=== PATIENT | male | born 1980 | race Caucasian/White ===

== ENCOUNTER 2016-12-05 14:40 | Inpatient (IN) | payer MEDICARE ==
[~2016-12-05] VITALS: Ht 180.3 cm; Wt 113.4 kg
--- NOTE | ~2016-12-05 | PR ---
[place], [place] PROGRESS NOTE NAME: GLORIA GUERRIER [facility] #: [id number] UNIT #: [id number] ROOM: 426 DOCTOR: LISA FRZAIER MD BIRTHDATE: [birth year] DOS: 12/06/2016 SUBJECTIVE: This patient is 36 years old. The patient comes in with complaints of high blood sugar. In March 2016, as a part of the DOT test, he was found to be diabetic. Then, he lost his insurance and he was unable to pay for a doctor visit, so he had not seen anybody until he visited Dr. Alicia's office yesterday, had a blood sugar checked, was unreadable on the monitor and so he decided to come into the Emergency Room. Blood sugar was in the 500s initially and was admitted with poorly controlled new onset diabetes. The patient denies having any chest pains, any palpitations. Does not have any fever or chills. He does have polyuria and polydipsia. PAST MEDICAL HISTORY: Not significant. MEDICATIONS: He does not take any medications. SOCIAL HISTORY: He works as a commercial trailer truck driver. He is , lives with his . OBJECTIVE EXAMINATION: GENERAL: He is awake and alert and oriented. VITAL SIGNS: Graphic trend shows that he is afebrile. Blood pressure is 140/70, pulse of 76, respirations 14. Afebrile. LUNGS: Clear. HEART: Regular. ABDOMEN: Obese, soft, nontender. EXTREMITIES: Without any edema. Multiple tattoos all over his arms. LABORATORY DATA: Hemoglobin A1c was 10.9. WBC count is normal at 9.1. Hemoglobin, hematocrit, platelets were normal. Comprehensive: Glucose 434 initially, BUN and creatinine were normal. Electrolytes were normal. This morning's potassium is down to 3.4. Cholesterol was 239, HDL 23, triglycerides 1153. ASSESSMENT AND PLAN: 1. New onset diabetes mellitus, poorly controlled with hyperglycemia, type 2 diabetes mellitus. The patient is admitted. IV fluids were given for the hyperosmolar state. The patient's blood sugars have come down. Metformin will be added. 2. Hypokalemia. Supplementation was given. 3. Hypertriglyceridemia from diabetes. Tricor was added. The patient is stable and can be discharged and follow up with his PCP. [place], [place] PROGRESS NOTE NAME: GLORIA GUERRIER UNIT #: [id number] ROOM: 426 DOCTOR: LISA FRAZIER MD BIRTHDATE: [birth year] LISA FRAZIER MD CM:PNTRANS [id number] LISA FRAZIER MD 12/06/16 1148 interface
[2016-12-05 14:40] VITALS: BP 184/100
[~2016-12-05 14:40] MED LIST: ALBUTEROL0.09 MG/A2 IH; AMOXICILLIN500 M2 PO; AMOXICILLIN500 MG PO; ANAPROX DS550 MG PO; ASPIRIN81 M1; ATIVAN1 MG PO; AUGMENTIN 875 M1 TAB PO; AUGMENTIN 875875 MG PO; AVPAK AZITHROM250 M1 PO; CATAPRES0.1 MG PO; CIPRO HC OT; CIPRODEX 0.3%-7.5 ML OT; CORTISPORIN 1%-10 M1 OT; CYCLOBENZAPRINE10 MG PO; DEPAKOTE125 MG; DEPAKOTE250 MG PO; DONNATAL1 TAB PO; DOXYCYCLINE HY100 M3 PO; DOXYCYCLINE MO100 MG PO; Depakote ER500 MG PO; EES400 MG PO; HYDROCODONE BIT1 T11 PO; IBU800 M1 PO; KEFLEX500 M1 PO; KEFLEX500 MG PO; LASIX20 MG PO; LIDEX0.05% T; MICRO K10 MEQ PO; MOTRIN,RUFEN800 MG PO; MOTRIN800 MG PO; Motrin,Rufen800 MG PO; NAPROSYN500 MG PO; NKHM; NORCO 5-325 TA1 EACH PO; OYSTER SHELL CA1 TAB PO; PEN-VK500 MG PO; PRAVACHOL20 MG PO; PREDNICOT20 MG PO; PREDNISONE10 MG PO; QVAR0.08 MG/AC IH; ROBITUSSIN-AC 160 ML PO; SINGULAIR10 MG PO; TESSALON PERLE100 M1 PO; TESSALON PERLE200 MG PO; TOBREX OPHTH S2.5 ML OPH; TRAMADOL HCL50 MG PO; TRIMOX500 MG PO; ULTRAM50 MG PO; VIBRAMYCIN100 MG PO; VICODIN 5/500 505 MG PO; VICODIN 500 MG-1 TAB PO; VICODIN ES 7501 TAB PO; VITAMIN D50000 I3 PO; VOLTAREN75 MG PO; WELLBUTRIN SR150 MG; WELLBUTRIN XL300 MG; ZITHROMAX250 MG PO; ZOVIRAX800 MG PO
[2016-12-05 14:55] VITALS: BP 140/97
[2016-12-05 15:50] LABS: BASO # 0.1 10*3/uL (0.0-0.1); BASO % 0.6 % (0.0-1.0); EOS # 0.1 10*3/uL (0.0-0.4); EOS % 1.4 % (1.0-4.0); HEMOGLOBIN 15.9 g/dl (14.0-18.0); LYMPH # 3.5 10*3/uL (1.3-4.4); LYMPH % 38.3 % (27.0-41.0); MEAN CELL VOLUME 85.5 fl (80.0-94.0); MEAN CORPUSCULAR HGB 31.6 pg (27.0-31.0); MEAN PLATELET VOLUME 9.2 fl (9.6-12.3); MONO # 0.6 10*3/uL (0.1-1.0); MONO % 6.1 % (3.0-9.0); NEUT # 4.8 10*3/uL (2.3-7.9); NEUT % 53.3 % (47.0-73.0); PLATELET COUNT AUTOMATED 270 10*3/uL (130-400); RED BLOOD COUNT 5.03 10*6/uL (4.50-5.90); RED CELL DISTRI WIDTH 12.1 % (0-14.5); WHITE BLOOD COUNT 9.1 10*3/uL (4.8-10.8)
[2016-12-05 15:59] LABS: HEMOGLOBIN A1c 10.9 % (4.8-5.6)
[2016-12-05 16:33] LABS: ABG BASE EXCESS -0.9 mmol/L (-2.0-2.0); ABG CO2 CONTENT 24.1 mmol/L (23-27); ABG TEMPERATURE 97.6 F (98.0-99.0); ARTERIAL BLOOD GAS PH 7.413 (7.35-7.45)
[2016-12-05 16:46] LABS: ALBUMIN 3.7 gm/dl (3.1-4.5); ALKALINE PHOSPHATASE 116 U/L (45-117); BILIRUBIN, TOTAL 0.3 mg/dl (0.2-1.0); BUN 12 mg/dl (7-24); CARBON DIOXIDE 22 mmol/L (21-32); CHLORIDE 100 mmol/L (98-107); CHOLESTEROL 239 mg/dL (<200); CKMB 0.8 ng/ml (0.5-3.6); CPK 118 U/L (39-308); EST GLOM FILT AFRICAN AMERICAN > 60 ml/min; HDL CHOLESTEROL 23 mg/dl (40-60); LDH 180 U/L (87-241); MAGNESIUM 2.1 mg/dL (1.5-2.1); POTASSIUM 3.5 mmol/L (3.5-5.1); SGOT/AST 17 IU/L (3-35); SGPT/ALT 43 U/L (12-78); SODIUM 137 mmol/L (136-145); TOTAL PROTEIN 7.4 gm/dL (6.4-8.2)
[2016-12-05 16:54] LABS: TRIGLYCERIDES 1153 mg/dl (<150); TROPONIN I < 0.015 ng/ml (<0.045)
[2016-12-05 16:55] LABS: GLUCOSE 434 mg/dL (65-99)
[2016-12-05 17:02] VITALS: BP 149/94
[2016-12-05 17:12] LABS: BILIRUBIN NEGATIVE (NEGATIVE); BLOOD TRACE-INTACT (NEGATIVE); CLARITY CLEAR (CLEAR); COLOR YELLOW (YELLOW); GLUCOSE 3+ (NEGATIVE); KETONE NEGATIVE (NEGATIVE); LEUKO ESTERASE NEGATIVE (NEGATIVE); NITRITE NEGATIVE (NEGATIVE); PROTEIN NEGATIVE (NEGATIVE); SPECIFIC GRAVITY 1.015 (1.005-1.030); UROBILINOGEN 0.2 E.U./dl (0.2-1.0)
[2016-12-05 17:32] LABS: RBC 0-2 rbc/hpf (0-2); URINE REFLEX COMMENT NO (NO)
[2016-12-05 20:00] VITALS: BP 156/93
[2016-12-06] VITALS: BP 114/58
[2016-12-06 06:30] LABS: BUN 14 mg/dl (7-24); CARBON DIOXIDE 24 mmol/L (21-32); CHLORIDE 105 mmol/L (98-107); EST GLOM FILT AFRICAN AMERICAN > 60 ml/min; GLUCOSE 252 mg/dL (65-99); POTASSIUM 3.4 mmol/L (3.5-5.1); SODIUM 139 mmol/L (136-145)
[2016-12-06] MEDS ORDERED: METFOMIN HYDRO850 MG PO (08:24)
[2016-12-06] MEDS ORDERED: FENOFIBRATE160 MG PO (08:24)
== END 2016-12-06 08:59 | disposition home or self-care (01) | DRG 639 ==
LOC: ED 14:40 → EDHOLD 17:44 → 4E 17:44
PROVIDERS: Internal Medicine; Physician Assistant
DX: E11.00 Type 2 diabetes mellitus with hyperosmolarity without nonketotic hyperglycemic-hyperosmolar coma (NKHHC) (principal); E11.65 Type 2 diabetes mellitus with hyperglycemia; E87.6 Hypokalemia; E78.1 Pure hyperglyceridemia

== ENCOUNTER 2017-02-16 22:20 | Emergency (ER) | payer SELFPAY ==
[~2017-02-16] VITALS: Ht 182.8 cm; Wt 111.6 kg
[~2017-02-16 22:20] MED LIST changes: +FENOFIBRATE160 MG PO; +METFOMIN HYDRO850 MG PO
[2017-02-16] MEDS ORDERED: MEDROL DOSEPAK4 MG PO (22:51)
== END 2017-02-16 23:39 | disposition home or self-care (01) ==
LOC: ED 22:20
DX: L23.9 Allergic contact dermatitis, unspecified cause (principal); F17.200 Nicotine dependence, unspecified, uncomplicated; Z79.899 Other long term (current) drug therapy; Z88.6 Allergy status to analgesic agent

== ENCOUNTER → 2018-01-13 | Outpatient (CLI) | payer MEDICARE, MEDICAID ==
[~2018-01-13] MED LIST changes: +MEDROL DOSEPAK4 MG PO
[2018-01-13 09:52] LABS: HEMATOCRIT 45.3 % (42.0-52.0); HEMOGLOBIN 16.1 g/dl (14.0-18.0); MEAN CELL VOLUME 87.3 fl (80.0-94.0); MEAN CORPUSCULAR HGB CONC 35.5 g/dl (33.0-37.0); MEAN PLATELET VOLUME 8.8 fl (9.6-12.3); RED BLOOD COUNT 5.19 10*6/uL (4.50-5.90); RED CELL DISTRI WIDTH 12.4 % (0-14.5); WHITE BLOOD COUNT 9.7 10*3/uL (4.8-10.8)
[2018-01-13 10:19] LABS: ALKALINE PHOSPHATASE 74 U/L (45-117); BUN 11 mg/dl (7-24); CHLORIDE 106 mmol/L (98-107); CHOLESTEROL 212 mg/dL (<200); CPK 108 U/L (39-308); CREATININE 1.01 mg/dL (0.70-1.30); HDL CHOLESTEROL 25 mg/dl (40-60); LDL CHOLESTEROL 110 mg/dL (9-159); POTASSIUM 3.9 mmol/L (3.5-5.1); SGOT/AST 25 IU/L (3-35); SGPT/ALT 53 U/L (12-78); SODIUM 140 mmol/L (136-145); TOTAL PROTEIN 7.2 gm/dL (6.4-8.2); TRIGLYCERIDES 384 mg/dl (<150); VLDL CHOLESTEROL 77 mg/dL (6-40)
== END | disposition home or self-care (01) ==
LOC: LAB 09:30
PROVIDERS: Family Medicine
DX: E55.9 Vitamin D deficiency, unspecified (principal); E78.00 Pure hypercholesterolemia, unspecified; E11.9 Type 2 diabetes mellitus without complications; I10 Essential (primary) hypertension

== ENCOUNTER 2018-10-15 19:25 | Emergency (ER) | payer SELFPAY ==
[~2018-10-15] VITALS: Ht 185.4 cm; Wt 108.9 kg
[2018-10-15 20:03] LABS: BASO # 0.1 10*3/uL (0.0-0.1); BASO % 0.3 % (0.0-1.0); EOS # 0.3 10*3/uL (0.0-0.4); HEMATOCRIT 48.4 % (42.0-52.0); HEMOGLOBIN 17.1 g/dl (14.0-18.0); LYMPH # 1.1 10*3/uL (1.3-4.4); LYMPH % 7.5 % (27.0-41.0); MEAN CELL VOLUME 87.8 fl (80.0-94.0); MEAN CORPUSCULAR HGB CONC 35.3 g/dl (33.0-37.0); MEAN PLATELET VOLUME 8.5 fl (9.6-12.3); MONO # 0.9 10*3/uL (0.1-1.0); MONO % 5.7 % (3.0-9.0); NEUT # 12.5 10*3/uL (2.3-7.9); NEUT % 84.2 % (47.0-73.0); PLATELET COUNT AUTOMATED 286 10*3/uL (130-400); RED BLOOD COUNT 5.51 10*6/uL (4.50-5.90); RED CELL DISTRI WIDTH 12.6 % (0-14.5); WHITE BLOOD COUNT 14.8 10*3/uL (4.8-10.8)
[2018-10-15 20:19] LABS: ALBUMIN 3.8 gm/dl (3.1-4.5); ALKALINE PHOSPHATASE 74 U/L (45-117); BUN 15 mg/dl (7-24); CHLORIDE 108 mmol/L (98-107); LIPASE 137 U/L (73-393); SGOT/AST 19 IU/L (3-35); SGPT/ALT 30 U/L (12-78); SODIUM 140 mmol/L (136-145); TOTAL PROTEIN 7.5 gm/dL (6.4-8.2)
[2018-10-15 20:48] LABS: BILIRUBIN NEGATIVE (NEGATIVE); BLOOD NEGATIVE (NEGATIVE); CLARITY CLEAR (CLEAR); COLOR YELLOW (YELLOW); GLUCOSE NEGATIVE (NEGATIVE); KETONE NEGATIVE (NEGATIVE); LEUKO ESTERASE NEGATIVE (NEGATIVE); NITRITE NEGATIVE (NEGATIVE); SPECIFIC GRAVITY 1.025 (1.005-1.030); UROBILINOGEN 0.2 E.U./dl (0.2-1.0)
[2018-10-15 21:16] LABS: BACTERIA TRACE; WBC 0-2 wbc/hpf (0-5)
== END 2018-10-15 22:10 | disposition left against medical advice (07) ==
LOC: ED 19:25
PROVIDERS: Emergency Medicine
DX: R74.0 Nonspecific elevation of levels of transaminase and lactic acid dehydrogenase [LDH] (principal); E11.9 Type 2 diabetes mellitus without complications; F17.200 Nicotine dependence, unspecified, uncomplicated; Z88.6 Allergy status to analgesic agent; Z79.84 Long term (current) use of oral hypoglycemic drugs

== ENCOUNTER → 2018-12-11 | Outpatient (CLI) | payer MEDICAID ==
[~2018-12-11] MED LIST changes: +ASPIRIN CHEWABL81 MG PO; +METFORMIN HCL500 M2 PO; +NEURONTIN300 MG PO; +RISPERDAL1 M1 PO
[2018-12-11 12:40] LABS: MEAN CELL VOLUME 89.7 fl (80.0-94.0); MEAN CORPUSCULAR HGB 31.8 pg (27.0-31.0); MEAN CORPUSCULAR HGB CONC 35.4 g/dl (33.0-37.0); MEAN PLATELET VOLUME 8.8 fl (9.6-12.3); RED BLOOD COUNT 5.35 10*6/uL (4.50-5.90); RED CELL DISTRI WIDTH 12.4 % (0-14.5); WHITE BLOOD COUNT 9.4 10*3/uL (4.8-10.8)
[2018-12-11 13:03] LABS: ALBUMIN 3.9 gm/dl (3.1-4.5); ALKALINE PHOSPHATASE 78 U/L (45-117); BUN 8 mg/dl (7-24); CHLORIDE 105 mmol/L (98-107); CHOLESTEROL 206 mg/dL (<200); CREATININE 0.92 mg/dL (0.70-1.30); HDL CHOLESTEROL 29 mg/dl (40-60); POTASSIUM 4.3 mmol/L (3.5-5.1); SGOT/AST 16 IU/L (3-35); SGPT/ALT 33 U/L (12-78); SODIUM 142 mmol/L (136-145); TOTAL PROTEIN 7.5 gm/dL (6.4-8.2); TRIGLYCERIDES 461 mg/dl (<150)
[2018-12-11 13:53] LABS: VITAMIN D, 25-HYDROXY 26.1 ng/mL (30-100)
== END | disposition home or self-care (01) ==
LOC: LAB 12:02
PROVIDERS: Family Medicine
DX: E78.00 Pure hypercholesterolemia, unspecified (principal); E11.40 Type 2 diabetes mellitus with diabetic neuropathy, unspecified; I10 Essential (primary) hypertension; R53.83 Other fatigue

== ENCOUNTER → 2019-03-08 | Outpatient (CLI) | payer MEDICARE, MEDICAID | END | disposition home or self-care (01) | LOC: RAD 12:06 | DX: M54.2 Cervicalgia (principal); M79.602 Pain in left arm; R20.0 Anesthesia of skin ==

== ENCOUNTER → 2019-03-11 | Outpatient (CLI) | payer MEDICARE, MEDICAID ==
[2019-03-11 12:36] LABS: HEMATOCRIT 48.6 % (42.0-52.0); MEAN CELL VOLUME 89.7 fl (80.0-94.0); MEAN CORPUSCULAR HGB 31.4 pg (27.0-31.0); MEAN PLATELET VOLUME 8.9 fl (9.6-12.3); RED BLOOD COUNT 5.42 10*6/uL (4.50-5.90); RED CELL DISTRI WIDTH 12.5 % (0-14.5); WHITE BLOOD COUNT 10.5 10*3/uL (4.8-10.8)
[2019-03-11 13:07] LABS: ALBUMIN 3.9 gm/dl (3.1-4.5); ALKALINE PHOSPHATASE 81 U/L (45-117); BUN 12 mg/dl (7-24); CHLORIDE 108 mmol/L (98-107); CREATININE 1.03 mg/dL (0.70-1.30); SGOT/AST 15 IU/L (3-35); SGPT/ALT 31 U/L (12-78); SODIUM 140 mmol/L (136-145); TOTAL PROTEIN 7.6 gm/dL (6.4-8.2)
[2019-03-12 07:04] LABS: RHEUMATOID ARTHRITIS FACTOR <10.0 IU/mL (0.0-13.9)
== END | disposition home or self-care (01) ==
LOC: LAB 11:51
PROVIDERS: Family Medicine
DX: E74.9 Disorder of carbohydrate metabolism, unspecified (principal); R20.2 Paresthesia of skin; M25.50 Pain in unspecified joint; Z79.899 Other long term (current) drug therapy

== ENCOUNTER → 2019-05-31 | Outpatient (CLI) | payer MEDICARE ==
[2019-05-31 13:56] LABS: HEMATOCRIT 47.3 % (42.0-52.0); HEMOGLOBIN 16.1 g/dl (14.0-18.0); MEAN CELL VOLUME 91.7 fl (80.0-94.0); MEAN CORPUSCULAR HGB 31.2 pg (27.0-31.0); MEAN PLATELET VOLUME 8.7 fl (9.6-12.3); RED BLOOD COUNT 5.16 10*6/uL (4.50-5.90); RED CELL DISTRI WIDTH 12.6 % (0-14.5); WHITE BLOOD COUNT 7.8 10*3/uL (4.8-10.8)
[2019-05-31 14:02] LABS: ALKALINE PHOSPHATASE 85 U/L (45-117); BUN 14 mg/dl (7-24); CHLORIDE 104 mmol/L (98-107); CHOLESTEROL 219 mg/dL (<200); HDL CHOLESTEROL 29 mg/dl (40-60); LDL CHOLESTEROL 113 mg/dL (9-159); POTASSIUM 4.1 mmol/L (3.5-5.1); SGOT/AST 10 IU/L (3-35); SGPT/ALT 23 U/L (12-78); SODIUM 137 mmol/L (136-145); TOTAL PROTEIN 7.7 gm/dL (6.4-8.2); TRIGLYCERIDES 385 mg/dl (<150); VLDL CHOLESTEROL 77 mg/dL (6-40)
== END | disposition home or self-care (01) ==
LOC: LAB 13:25
PROVIDERS: Nurse Practitioner Family
DX: E11.9 Type 2 diabetes mellitus without complications (principal); I10 Essential (primary) hypertension; E55.9 Vitamin D deficiency, unspecified; E78.00 Pure hypercholesterolemia, unspecified

== ENCOUNTER 2020-02-08 11:32 | Emergency (ER) | payer OTHER, MEDICARE ==
[~2020-02-08] VITALS: Ht 182.8 cm; Wt 107.5 kg
[2020-02-08] MEDS ORDERED: TYLENOL325 M1 PO (12:05)
[2020-02-08] MEDS ORDERED: NAPROSYN500 MG PO (12:05)
== END 2020-02-08 12:07 | disposition home or self-care (01) ==
LOC: ED 11:32
DX: M54.6 Pain in thoracic spine (principal); M79.18 Myalgia, other site; E11.9 Type 2 diabetes mellitus without complications; F41.9 Anxiety disorder, unspecified; J44.9 Chronic obstructive pulmonary disease, unspecified; F31.9 Bipolar disorder, unspecified; E78.5 Hyperlipidemia, unspecified; Z88.8 Allergy status to other drugs, medicaments and biological substances; Z79.899 Other long term (current) drug therapy

== ENCOUNTER 2021-09-03 21:22 | Emergency (ER) | payer SELFPAY ==
[~2021-09-03] VITALS: Ht 182.8 cm; Wt 95.7 kg
[~2021-09-03 21:22] MED LIST changes: +TYLENOL325 M1 PO
[2021-09-03 22:39] LABS: BASO # 0.1 10*3/uL (0.0-0.1); BASO % 0.6 % (0.0-1.0); EOS # 0.8 10*3/uL (0.0-0.4); EOS % 5.5 % (1.0-4.0); HEMATOCRIT 45.1 % (42.0-52.0); LYMPH # 3.5 10*3/uL (1.3-4.4); LYMPH % 23.9 % (27.0-41.0); MEAN CELL VOLUME 86.2 fl (80.0-94.0); MEAN CORPUSCULAR HGB 30.8 pg (27.0-31.0); MEAN CORPUSCULAR HGB CONC 35.7 g/dl (33.0-37.0); MEAN PLATELET VOLUME 9.4 fl (9.6-12.3); MONO # 0.8 10*3/uL (0.1-1.0); MONO % 5.7 % (3.0-9.0); NEUT # 9.3 10*3/uL (2.3-7.9); PLATELET COUNT AUTOMATED 280 10*3/uL (130-400); RED BLOOD COUNT 5.23 10*6/uL (4.50-5.90); RED CELL DISTRI WIDTH 11.7 % (0-14.5); WHITE BLOOD COUNT 14.5 10*3/uL (4.8-10.8)
[2021-09-03 22:50] LABS: ACT PARTIAL THROMBO TIME 25.3 SECONDS (20.0-32.1)
[2021-09-03 22:53] LABS: ALBUMIN 3.3 gm/dl (3.1-4.5); ALKALINE PHOSPHATASE 107 U/L (45-117); BUN 14 mg/dl (7-24); CHLORIDE 99 mmol/L (98-107); CREATININE 1.27 mg/dL (0.70-1.30); POTASSIUM 3.9 mmol/L (3.5-5.1); SGOT/AST 14 IU/L (3-35); SGPT/ALT 21 U/L (12-78); SODIUM 134 mmol/L (136-145); TOTAL PROTEIN 6.9 gm/dL (6.4-8.2)
== END 2021-09-04 01:13 | disposition left against medical advice (07) ==
LOC: ED 21:22
PROVIDERS: Emergency Medicine
DX: R07.89 Other chest pain (principal); E78.00 Pure hypercholesterolemia, unspecified; I10 Essential (primary) hypertension; E11.65 Type 2 diabetes mellitus with hyperglycemia; Z79.82 Long term (current) use of aspirin; Z79.899 Other long term (current) drug therapy; Z88.6 Allergy status to analgesic agent

== ENCOUNTER → 2021-12-09 | Outpatient (CLI) | payer SELFPAY | LOC: RESCLI 02:51 | PROVIDERS: ATTEND Internal Medicine | DX: E78.5 Hyperlipidemia, unspecified (principal); E78.00 Pure hypercholesterolemia, unspecified; E55.9 Vitamin D deficiency, unspecified; K76.0 Fatty (change of) liver, not elsewhere classified; E11.9 Type 2 diabetes mellitus without complications; Z82.49 Family history of ischemic heart disease and other diseases of the circulatory system; Z79.82 Long term (current) use of aspirin; Z79.899 Other long term (current) drug therapy ==

== ENCOUNTER 2022-02-28 16:13 | Emergency (ER) | payer OTHER ==
[~2022-02-28] VITALS: Ht 182.8 cm; Wt 96.6 kg
== END 2022-02-28 21:12 | disposition home or self-care (01) ==
LOC: ED 16:13
DX: M79.89 Other specified soft tissue disorders (principal); Z88.8 Allergy status to other drugs, medicaments and biological substances; Z79.82 Long term (current) use of aspirin; F17.200 Nicotine dependence, unspecified, uncomplicated

== ENCOUNTER 2022-03-01 22:52 | Emergency (ER) | payer SELFPAY ==
[2022-03-02] MEDS ORDERED: CEPHALEXIN500 M1 PO (00:49)
== END 2022-03-02 01:04 | disposition home or self-care (01) ==
LOC: ED 22:52
DX: S60.351A Superficial foreign body of right thumb, initial encounter (principal); E11.9 Type 2 diabetes mellitus without complications; J44.9 Chronic obstructive pulmonary disease, unspecified; Z88.6 Allergy status to analgesic agent; Z79.82 Long term (current) use of aspirin; W45.8XXA Other foreign body or object entering through skin, initial encounter; Y93.89 Activity, other specified; Y92.89 Other specified places as the place of occurrence of the external cause; Y99.8 Other external cause status

== ENCOUNTER → 2022-03-28 | Outpatient (CLI) | payer SELFPAY ==
[~2022-03-28] MED LIST changes: +CEPHALEXIN500 M1 PO
== END | disposition home or self-care (01) ==
LOC: RESCLI 10:21
PROVIDERS: ATTEND Internal Medicine
DX: E11.42 Type 2 diabetes mellitus with diabetic polyneuropathy (principal); E78.2 Mixed hyperlipidemia; B37.49 Other urogenital candidiasis; E55.9 Vitamin D deficiency, unspecified; I10 Essential (primary) hypertension; Z79.899 Other long term (current) drug therapy; Z88.8 Allergy status to other drugs, medicaments and biological substances; Z79.01 Long term (current) use of anticoagulants

== ENCOUNTER 2022-08-02 07:39 | Emergency (ER) | payer BC ==
[~2022-08-02] VITALS: Wt 96.2 kg
[2022-08-02] MEDS ORDERED: AMOXICILLIN875 MG PO (08:59)
== END 2022-08-02 09:19 | disposition home or self-care (01) ==
LOC: ED 07:39
DX: J02.9 Acute pharyngitis, unspecified (principal); Z88.8 Allergy status to other drugs, medicaments and biological substances; Z79.82 Long term (current) use of aspirin; Z98.890 Other specified postprocedural states

== ENCOUNTER 2022-12-26 07:12 | Emergency (ER) | payer SELFPAY ==
[~2022-12-26] VITALS: Ht 180.3 cm; Wt 95.3 kg
[~2022-12-26 07:12] MED LIST changes: +AMOXICILLIN875 MG PO
[2022-12-26] MEDS ORDERED: TOBRADEX ST EYE5 ML OP (07:56)
== END 2022-12-26 08:09 | disposition home or self-care (01) ==
LOC: ED 07:12
DX: S05.01XA Injury of conjunctiva and corneal abrasion without foreign body, right eye, initial encounter (principal); F41.9 Anxiety disorder, unspecified; J44.9 Chronic obstructive pulmonary disease, unspecified; F31.9 Bipolar disorder, unspecified; E78.5 Hyperlipidemia, unspecified; Z88.8 Allergy status to other drugs, medicaments and biological substances; Z98.890 Other specified postprocedural states; Z87.891 Personal history of nicotine dependence; X58.XXXA Exposure to other specified factors, initial encounter; Y93.89 Activity, other specified; Y92.89 Other specified places as the place of occurrence of the external cause; Y99.8 Other external cause status

== ENCOUNTER 2023-12-12 18:24 | Emergency (ER) | payer SELFPAY ==
[~2023-12-12] VITALS: Ht 182.8 cm; Wt 100.2 kg
[~2023-12-12 18:24] MED LIST changes: +TOBRADEX ST EYE5 ML OP
[2023-12-12 18:52] LABS: BASO # 0.1 10*3/uL (0.0-0.1); BASO % 0.7 % (0.0-1.0); EOS # 0.2 10*3/uL (0.0-0.4); EOS % 2.2 % (1.0-4.0); LYMPH # 3.6 10*3/uL (1.3-4.4); LYMPH % 41.5 % (27.0-41.0); MEAN CELL VOLUME 89.7 fl (80.0-94.0); MEAN CORPUSCULAR HGB CONC 33.5 g/dl (33.0-37.0); MEAN PLATELET VOLUME 8.7 fl (9.6-12.3); MONO # 0.6 10*3/uL (0.1-1.0); MONO % 6.9 % (3.0-9.0); NEUT # 4.2 10*3/uL (2.3-7.9); NEUT % 48.5 % (47.0-73.0); PLATELET COUNT AUTOMATED 335 10*3/uL (130-400); RED BLOOD COUNT 5.13 10*6/uL (4.50-5.90); RED CELL DISTRI WIDTH 12.2 % (0-14.5); WHITE BLOOD COUNT 8.7 10*3/uL (4.8-10.8)
[2023-12-12 19:02] LABS: ACT PARTIAL THROMBO TIME 26.2 SECONDS (20.0-32.1)
[2023-12-12 19:22] LABS: ALKALINE PHOSPHATASE 68 U/L (46-116); BUN 9 mg/dl (9-23); CHLORIDE 105 mmol/L (98-107); POTASSIUM 3.9 mmol/L (3.4-5.1); SGPT/ALT 15 U/L (5-49); TOTAL PROTEIN 6.8 gm/dL (6.0-8.0)
[2023-12-12] MEDS ORDERED: INSULIN REGULAR, HUMAN 1 UNIT/0.01 ML IV ONE (19:40)
[2023-12-12] MEDS ORDERED: GLIPIZIDE5 MG PO (19:47)
[2023-12-12] MEDS ORDERED: ATORVASTATIN CA40 M1 PO (19:48)
[2023-12-12] MEDS ORDERED: PIOGLITAZONE HC30 MG PO (19:48)
[2023-12-12] MEDS ORDERED: FENOFIBRATE145 M1 PO (19:48)
[2023-12-12 20:15] LABS: URINE AMPHETAMINES Negative (1000ng/ml); URINE BARBITURATES Negative (200ng/ml); URINE BENZODIAZEPINES Negative (200ng/ml); URINE CANNABINOIDS (THC) Negative (50ng/ml); URINE COCAINE Negative (300ng/ml); URINE METHADONE Negative (300ng/ml); URINE OPIATES Negative (300ng/ml); URINE PHENCYCLIDINE Negative (25ng/ml)
[2023-12-12] MEDS ORDERED: Nicotine 21 MG PATCH T ONE (21:25)
[2023-12-12] MEDS ORDERED: MELOXICAM15 MG PO (21:59)
[2023-12-13] MEDS ORDERED: Nicotine 21 MG PATCH T SCH (10:00)
[2023-12-13] MEDS ORDERED: Nicotine 21 MG PATCH T ONE (21:25)
== END 2023-12-12 22:00 | disposition home or self-care (01) ==
LOC: ED 18:24
PROVIDERS: Internal Medicine
DX: S29.011A Strain of muscle and tendon of front wall of thorax, initial encounter (principal); I10 Essential (primary) hypertension; R42 Dizziness and giddiness; R53.83 Other fatigue; Z88.8 Allergy status to other drugs, medicaments and biological substances; Z98.890 Other specified postprocedural states; Z87.891 Personal history of nicotine dependence; X58.XXXA Exposure to other specified factors, initial encounter; Y93.89 Activity, other specified; Y92.89 Other specified places as the place of occurrence of the external cause; Y99.8 Other external cause status

== ENCOUNTER → 2024-01-30 | Outpatient (CLI) | payer SELFPAY ==
[~2024-01-30] MED LIST changes: +ATORVASTATIN CA40 M1 PO; +FENOFIBRATE145 M1 PO; +GLIPIZIDE5 MG PO; +MELOXICAM15 MG PO; +PIOGLITAZONE HC30 MG PO
[2024-01-30 08:24] LABS: BASO # 0.1 10*3/uL (0.0-0.1); BASO % 0.7 % (0.0-1.0); EOS # 0.2 10*3/uL (0.0-0.4); EOS % 2.5 % (1.0-4.0); HEMATOCRIT 45.7 % (42.0-52.0); LYMPH # 3.2 10*3/uL (1.3-4.4); LYMPH % 39.4 % (27.0-41.0); MEAN CELL VOLUME 89.3 fl (80.0-94.0); MEAN CORPUSCULAR HGB 30.9 pg (27.0-31.0); MEAN CORPUSCULAR HGB CONC 34.6 g/dl (33.0-37.0); MEAN PLATELET VOLUME 8.6 fl (9.6-12.3); MONO # 0.6 10*3/uL (0.1-1.0); MONO % 6.9 % (3.0-9.0); NEUT # 4.1 10*3/uL (2.3-7.9); NEUT % 50.3 % (47.0-73.0); PLATELET COUNT AUTOMATED 324 10*3/uL (130-400); RED BLOOD COUNT 5.12 10*6/uL (4.50-5.90); RED CELL DISTRI WIDTH 12.7 % (0-14.5); WHITE BLOOD COUNT 8.1 10*3/uL (4.8-10.8)
[2024-01-30 09:00] LABS: ALKALINE PHOSPHATASE 60 U/L (46-116); BUN 11 mg/dl (9-23); CHLORIDE 106 mmol/L (98-107); CHOLESTEROL 180 mg/dL (<200); LDL CHOLESTEROL 100 mg/dL (9-159); POTASSIUM 4.1 mmol/L (3.4-5.1); SGPT/ALT 20 U/L (5-49); TRIGLYCERIDES 193 mg/dl (<150)
== END | disposition home or self-care (01) ==
LOC: LAB 08:01
PROVIDERS: ATTEND Nurse Practitioner Primary Care
DX: E11.9 Type 2 diabetes mellitus without complications (principal)

== ENCOUNTER 2024-08-13 13:03 | Emergency (ER) | payer OTHER ==
[~2024-08-13] VITALS: Ht 182.8 cm; Wt 99.8 kg
[2024-08-13] MEDS ORDERED: ceFAZolin sodium 1 GM in SYRINGE INFUSION 10 ML IV ONE (13:20)
[2024-08-13] MEDS ORDERED: Tdap Vaccine 0.5 ML SYR (Adult Vaccine) IM ONE (13:20)
[2024-08-13] MEDS ORDERED: SODIUM CHLORIDE 0.9% 1,000 ML IV ONE (13:20)
[2024-08-13] MEDS ORDERED: Lidocaine Hydrochloride 2% 10 ML AMP SC ONE (13:25)
[2024-08-13] MEDS ORDERED: Bacitracin Zinc 14 GM TUBE T ONE (13:25)
[2024-08-13] MEDS ORDERED: ceFAZolin sodium/sodium chlor 10 ML IV ONE (13:30)
[2024-08-13] MEDS ORDERED: Ondansetron Hydrochloride 4 MG/2 ML VIAL IV ONE (13:40)
[2024-08-13] MEDS ORDERED: HYDROmorphONE Hydrochloride 1 MG/ML SYR IV ONE ×2 (13:40→14:20)
[2024-08-13] MEDS ORDERED: HYDROCODONE-AC1 EAC1 PO ×2 (15:46→16:20)
[2024-08-13] MEDS ORDERED: CEPHALEXIN500 M1 PO ×2 (15:46→16:20)
[2024-08-13] MEDS ORDERED: Ondansetron4 MG PO ×2 (15:46→16:20)
== END 2024-08-13 15:49 | disposition home or self-care (01) ==
LOC: ED 13:03
DX: S61.412A Laceration without foreign body of left hand, initial encounter (principal); E11.9 Type 2 diabetes mellitus without complications; Z88.8 Allergy status to other drugs, medicaments and biological substances; Z79.899 Other long term (current) drug therapy; Z79.82 Long term (current) use of aspirin; Z79.84 Long term (current) use of oral hypoglycemic drugs; W29.8XXA Contact with other powered hand tools and household machinery, initial encounter; Y93.89 Activity, other specified; Y92.69 Other specified industrial and construction area as the place of occurrence of the external cause; Y99.0 Civilian activity done for income or pay

== ENCOUNTER → 2024-11-08 | Outpatient (CLI) | payer OTHER ==
[~2024-11-08] MED LIST changes: +HYDROCODONE-AC1 EAC1 PO; +Ondansetron4 MG PO
== END | disposition home or self-care (01) ==
LOC: MRI 07:53
PROVIDERS: ATTEND Orthopaedic Surgery
DX: S66.922A Laceration of unspecified muscle, fascia and tendon at wrist and hand level, left hand, initial encounter (principal); M19.042 Primary osteoarthritis, left hand; X58.XXXA Exposure to other specified factors, initial encounter; Y93.89 Activity, other specified; Y92.89 Other specified places as the place of occurrence of the external cause; Y99.8 Other external cause status

== ENCOUNTER 2024-12-09 21:57 | Emergency (ER) | payer OTHER ==
[~2024-12-09] VITALS: Ht 182.9 cm; Wt 104.3 kg
[2024-12-10] MEDS ORDERED: Acetaminophen/Oxycodone 5 MG/325 MG TABLET PO ONE (00:55)
== END 2024-12-10 00:59 | disposition home or self-care (01) ==
LOC: ED 21:57
DX: M79.642 Pain in left hand (principal); F17.200 Nicotine dependence, unspecified, uncomplicated; Z88.8 Allergy status to other drugs, medicaments and biological substances; Z79.899 Other long term (current) drug therapy; Z79.82 Long term (current) use of aspirin; Z79.84 Long term (current) use of oral hypoglycemic drugs; X50.0XXA Overexertion from strenuous movement or load, initial encounter; Y93.89 Activity, other specified; Y92.69 Other specified industrial and construction area as the place of occurrence of the external cause; Y99.8 Other external cause status

== ENCOUNTER 2025-03-10 18:07 | Emergency (ER) | payer OTHER ==
[~2025-03-10] VITALS: Ht 182.8 cm; Wt 101.6 kg
[2025-03-10] MEDS ORDERED: Acetaminophen/Hydrocodone HP 10/325 PO ONE (18:30)
[2025-03-10] MEDS ORDERED: PREDNISONE50 MG PO (19:22)
[2025-03-10] MEDS ORDERED: methylPREDNISolone sod succ 125 MG VIAL IM ONE (19:25)
== END 2025-03-10 19:40 | disposition home or self-care (01) ==
LOC: ED 18:07
DX: R22.32 Localized swelling, mass and lump, left upper limb (principal); M79.642 Pain in left hand; Z79.899 Other long term (current) drug therapy; Z79.82 Long term (current) use of aspirin; Z79.84 Long term (current) use of oral hypoglycemic drugs